=== PATIENT | female | born 1955 | race Hispanic/Latino ===

== ENCOUNTER 2016-10-03 06:07 | Day surgery (SDC) | payer MEDICARE ==
[2016-07-20 12:47] VITALS: BMI 23.0
[2016-10-03] MEDS ORDERED: Iodixanol 320 mg/ml 150 ml Bottle IV ONE (06:35)
[2016-10-03] MEDS ORDERED: Lidocaine 2% Inj (20ml) ONE (06:35)
[2016-10-03 06:36] LABS: ADD MANUAL DIFF? NO
[2016-10-03 06:38] LABS: BASO # 0.05 K/mm3 (0.0-2.0); BASO % 0.4 % (0.0-3.0); EOS # 0.4 (0.0-0.7); EOS % 3.9 % (1.5-5.0); GRAN # 7.01 (1.4-6.5); GRAN % 62.3 % (50.0-68.0); HEMATOCRIT 35.9 % (36.0-48.0); LYMPH % 26.5 % (22.0-35.0); MEAN CELL VOLUME 94.2 fL (80.0-105.0); MEAN CORPUSCULAR HEMOGLOBIN 31.2 pg (25.0-35.0); MEAN CORPUSCULAR HGB CONC 33.1 g/dl (31.0-37.0); MONO # 0.8 (0.1-0.6); MONO % 6.9 % (1.0-6.0); PLATELET COUNT 268 10^3/uL (120.0-450.0); RED CELL DISTRIBUTION WIDTH 14.2 % (11.5-14.5); WHITE BLOOD COUNT 11.3 10^3/ul (4.5-11.0)
[2016-10-03 06:49] LABS: CALCIUM 9.3 mg/dL (8.4-10.5); INR 0.98 (0.93-1.08); PARTIAL THROMBOPLASTIN TIME 30.1 Seconds (23.7-30.8); POTASSIUM 4.7 mmol/L (3.6-5.0)
--- NOTE | 2016-10-03 07:36 | CP.SDSHP ---
Same Day Surgery H & P - History Proposed Procedure: Fistulogram for right AV fistula Pre-Op Diagnosis: Swelling in the right arm, to evaluate fistula in right arm - Previous Medical/Surgical History Comments: 61 F with h/o CAD, 4 stents in 2016, h/o IDDM, h/o active tobacco abuse, ESRD on HD with Right AV fistula, h/o right subclavian stenosis needing angioplasty, h/o HD catheter on the right side, HTN - Allergies Allergies: Allergies No Known Allergies Allergy (Verified 07/08/15 18:47) - Current Medications Current Medications: Reviewed - Physical Exam Vital Signs: Vital Signs 10/03/16 06:45 Temperature 98 F Pulse Rate 70 Respiratory 18 Rate Blood Pressure 158/79 H O2 Sat by Pulse 94 L Oximetry Mental Status: Alert & Oriented x3 Neuro: WNL Heart: WNL Lungs: WNL GI: WNL - {Optional Preform as Required} Abdomen: WNL Other Pertinent Findings: Right arm swelling, pitting type extending to the right shoulder, lateral clavicular area, with some bruit herd uptill subclavian area. Dilated collateral veins noticed in right chest, and neck. - Impression Impression: For fistulogram R AV fistula due to swelling with h/o prior subclavian angioplasty, esrd on hd, no CV or pulmonary contraindications for the procedure, patient is scheduled for hd post procedure, patient is also on plavix. Short Stay Discharge - Short Stay Discharge Admitting Diagnosis/Reason for Visit: ESRD N18.6 Disposition: HOME/ ROUTINE
[2016-10-03] MEDS ORDERED: Midazolam 2 MG/2 ML VIAL ONE (07:45)
[2016-10-03] MEDS ORDERED: Oxycodone/Acetaminophen 5/325 mg Tab PO PRN (08:51)
[2016-10-03 09:45] VITALS: BP 161/82; PULSE 82; RESP 20; TEMP 97.8; O2SAT 98
--- NOTE | 2016-10-03 17:21 | VASCULAR ---
PROCEDURE: 1. Right upper extremity AV fistula angiogram. 2. Right innominate vein angioplasty HISTORY: End-stage renal disease. Malfunctioning AV access recurrent right innominate vein stenosis. Right arm swelling and discomfort. PHYSICIAN(S): Jan Dove MD. TECHNIQUE: The relative risks and indications of the procedure were explained to the patient and consent obtained. The patient was placed supine on the angiography table and the right arm prepped and draped in usual sterile fashion. Conscious sedation and monitoring provided throughout the procedure by a nurse. The right arm AV fistula was punctured in the mid forearm in an antegrade direction with a micropuncture set. A 5 [place] catheter was placed. An overlapping right upper extremity AV fistula angiogram was performed. Central venous imaging was obtained. A 7 Hungarian sheath was placed at the puncture site. The right innominate vein occlusion was crossed with a 5 Hungarian catheter and angled Glidewire. Exchange is made for 0.035 support wire. The recurrent right innominate vein occlusion was dilated with 12 mm balloon. An excellent angiographic result was obtained with brisk antegrade flow. No stent was placed. The sheath was removed and hemostasis obtained. FINDINGS: The patient's right radial-cephalic fistula is patent. The right median antecubital vein collateralized is to the large right basilic system. The right cephalic vein above the elbow is not opacified. Numerous collaterals are noted in the right shoulder. The right axillary and subclavian veins are patent. There is a short segment occlusion of the right innominate vein. The SVC is patent. IMPRESSION: 1. 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 2. Successful angioplasty with 12 mm balloon. No stent was required.
== END 2016-10-03 10:10 | disposition home or self-care (01) ==
LOC: SDSVAS 06:07
PROVIDERS: ATTEND Radiology Vascular & Interventional Radiology
DX: T82.858A Stenosis of other vascular prosthetic devices, implants and grafts, initial encounter (principal); N18.6 End stage renal disease; M79.89 Other specified soft tissue disorders; Y83.2 Surgical operation with anastomosis, bypass or graft as the cause of abnormal reaction of the patient, or of later complication, without mention of misadventure at the time of the procedure; Y92.098 Other place in other non-institutional residence as the place of occurrence of the external cause
CPT/HCPCS: 36415; 36901; 36907; 80048; 85025; 85610; 85730; 99152; C1725; C1769 ×2; C1887; C1894; J1644; J2250; J2405; J3010

== ENCOUNTER 2017-01-16 06:04 | Day surgery (SDC) | payer MEDICARE ==
[2017-01-14 11:42] VITALS: BMI 21.7
[2017-01-16] MEDS ORDERED: Lidocaine 2% Inj (20ml) ONE (06:36)
[2017-01-16] MEDS ORDERED: Iodixanol 320 MG/ML 100 ML BOTTLE IV ONE (06:37)
[2017-01-16] MEDS ORDERED: Nitroglycerin 50mg in D5W 50 MG/250 ML BOTTLE IV ONE (06:42)
[2017-01-16 07:00] LABS: INR 0.97 (0.93-1.08); PARTIAL THROMBOPLASTIN TIME 29.4 Seconds (23.7-30.8); PROTHROMBIN TIME 10.5 Seconds (9.9-11.8)
[2017-01-16] MEDS ORDERED: Midazolam 2 MG/2 ML VIAL ONE ×3 (07:02→07:54)
[2017-01-16 07:04] LABS: CALCIUM 8.9 mg/dL (8.4-10.5)
[2017-01-16 07:06] LABS: BASO # 0.05 K/mm3 (0.0-2.0); BASO % 0.5 % (0.0-3.0); EOS # 0.4 (0.0-0.7); GRAN # 6.19 (1.4-6.5); GRAN % 62.7 % (50.0-68.0); HEMOGLOBIN 10.7 gm/dL (12.0-16.0); LYMPH # 2.4 (1.2-3.4); LYMPH % 24.5 % (22.0-35.0); MEAN CORPUSCULAR HEMOGLOBIN 29.9 pg (25.0-35.0); MEAN CORPUSCULAR HGB CONC 32.1 g/dl (31.0-37.0); MEAN PLATELET VOLUME 8.7 fl (7.0-11.0); MONO # 0.8 (0.1-0.6); MONO % 8.3 % (1.0-6.0); PLATELET COUNT 236 10^3/uL (120.0-450.0); RBC 3.58 10^6/uL (3.5-6.1); RED CELL DISTRIBUTION WIDTH 13.5 % (11.5-14.5); WHITE BLOOD COUNT 9.9 10^3/ul (4.5-11.0)
--- NOTE | 2017-01-16 07:18 | CP.SDSHP ---
Same Day Surgery H & P - History Proposed Procedure: rt forearm fistulogram. Pre-Op Diagnosis: dysfunctional fistula./ckd - Previous Medical/Surgical History Cardiac: Hypertension, ASHD/CAD, Hx of CHF Pulmonary: Emphysema/COPD, Smoking Endocrine/Metabolic: Diabetes, Renal Disease Previous Surgical History: pci/stents x4. - Allergies Allergies: Allergies No Known Allergies Allergy (Verified 07/08/15 18:47) - Physical Exam General Appearance: WNL. Mental Status: Alert & Oriented x3 Neuro: WNL Heart: WNL Lungs: WNL GI: WNL - Impression Impression: DYSFUNTIONAL FISTULA/ckd. - Date & Time Date: 01/16/17 Time: 07:18 Short Stay Discharge - Short Stay Discharge Admitting Diagnosis/Reason for Visit: N18.6 Disposition: HOME/ ROUTINE Referrals: Rodo Phillip MD [Primary Care Provider] -
[2017-01-16] MEDS ORDERED: Oxycodone/Acetaminophen 5/325 mg Tab PO PRN (08:23)
--- NOTE | 2017-01-16 10:42 | VASCULAR ---
PROCEDURE: 1. Right upper extremity AV fistula angiogram. 2. Superior vena cava angiogram. 3. Right innominate vein angioplasty HISTORY: End-stage renal disease. Malfunctioning AV access Recurrent right innominate vein stenosis. PHYSICIAN(S): Jan Dove MD. TECHNIQUE: The relative risks and indications of the procedure were explained to the patient and consent obtained. The patient was placed supine on the angiography table and the right arm prepped and draped in usual sterile fashion. Conscious sedation and monitoring provided throughout the procedure by a nurse. The right arm AV fistula was punctured near the wrist in an antegrade direction with a micropuncture set. A 5 [place] catheter was placed. An overlapping right upper extremity AV fistula angiogram was performed. Central venous imaging was obtained. Exchange is made for a 7 [place] sheath. The recurrent right innominate vein occlusion was crossed with an angled glidewire and 5 [place] catheter. 0.035 support wire was placed in the IVC. Initially the right innominate vein was dilated with a 7 mm balloon. Next a right innominate vein was dilated with a 14 mm balloon. There is a good angiographic result with a mild residual stenosis. No stent was placed. The sheath was removed and hemostasis obtained with a purse suture. The patient tolerated the procedure well FINDINGS: The patient's right upper extremity radial-cephalic fistula is patent. Arterial anastomosis is patent. At the wrist, opacifications of both the cephalic and basilic system is noted. There is a recurrent short segment occlusion of the right innominate vein. Numerous shoulder and chest wall collaterals are present. The right subclavian vein and superior vena cava are patent. IMPRESSION: 1. 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 2. Successful dilatation with the 14 mm balloon. No stent was placed 3. Patent right radial - cephalic fistula
== END 2017-01-16 09:15 | disposition home or self-care (01) ==
LOC: SDSVAS 06:04
PROVIDERS: ATTEND Radiology Vascular & Interventional Radiology
DX: T82.868A Thrombosis due to vascular prosthetic devices, implants and grafts, initial encounter (principal); I13.2 Hypertensive heart and chronic kidney disease with heart failure and with stage 5 chronic kidney disease, or end stage renal disease; E11.22 Type 2 diabetes mellitus with diabetic chronic kidney disease; N18.6 End stage renal disease; I50.9 Heart failure, unspecified; Y83.8 Other surgical procedures as the cause of abnormal reaction of the patient, or of later complication, without mention of misadventure at the time of the procedure
CPT/HCPCS: 36415; 36901; 36907; 80048; 85025; 85610; 85730; 99152; 99153; C1725 ×2; C1769 ×2; C1887; C1894; J1644; J2250; J2405; J3010; Q9967